=== PATIENT | female | born 1995 | race Caucasian/White ===

== ENCOUNTER 2023-06-05 21:21 | Observation (INO) ==
[2023-06-05 22:21] LABS: Basophils # (auto) 0.05 K/uL (0-0.2); Basophils % (auto) 0.4 %; Eosinophils # (auto) 0.13 K/uL (0-0.50); Eosinophils % (auto) 1.1 %; Hematocrit (blood only) 34.7 % (37.0-47.0); Hemoglobin 11.4 g/dl (12.0-16.0); Immature Granulocytes # (auto) 0.04 K/uL (0.01-0.20); Immature Granulocytes % (auto) 0.3 %; Lymphocytes # (auto) 1.64 K/uL (1.2-3.4); Lymphocytes % (auto) 13.7 %; Mean Corpuscular Hemoglobin 26.4 pg (25.0-34.0); Mean Corpuscular Hgb Conc 32.9 g/dL (32.0-36.0); Mean Corpuscular Volume 80.3 fL (80.0-100.0); Mean Platelet Volume 9.6 fL (9.4-12.4); Monocytes # (auto) 0.69 K/uL (0.11-0.59); Monocytes % (auto) 5.8 %; Neutrophils # (auto) 9.45 K/uL (1.40-6.50); Neutrophils % (auto) 78.7 %; Platelet Count 322 K/uL (130-400); RDW Coefficient of Variation 13.8 % (11.5-14.5); RDW Standard Deviation 39.9 fL (36.4-46.3); Red Blood Count 4.32 M/uL (4.20-5.40)
[2023-06-05 22:41] LABS: BUN Creatinine Ratio 12.5 (10-20); Calcium 8.8 mg/dl (8.6-10.3); Creatinine Clr Calc Pharmacy 116.8 ml/min; Est GFR (African American) 117.9 ml/min; Est GFR (Non-African American) 101.8 ml/min; Potassium 3.5 mmol/L (3.5-5.1)
[2023-06-05] MEDS ORDERED: AMPICILLIN/SULBACTAM SOD 3,000 MG in 0.9 % SODIUM CHLORIDE 100 ML IV STA (23:13)
[2023-06-05] MEDS ORDERED: KETOROLAC TROMETHAMINE 15 MG/ML VIAL IV ONE (23:14)
[2023-06-05] MEDS ORDERED: ACETAMINOPHEN 1,000 MG/100 ML VIAL IV STA (23:14)
[2023-06-05] MEDS ORDERED: SODIUM CHLORIDE 0.9% 1000ML 1,000 ML IV SCH (23:15)
--- NOTE | 2023-06-05 23:20 | Emergency Department Note ---
Impression & Plan Cat bite, Cellulitis, Lymphangitis ED Provider Note ED Provider Note NAME: BALDEV BARTH AGE:28 SEX: Female : 1995 ARRIVES VIA: Private vehicle INFORMANT: Patient ED PROVIDER(s): Gifty Diehl DO CHIEF COMPLAINT: Increased pain and redness at site of recent cat bite HPI: This is a 28-year-old female presents emerged department due to concern for worsening infection following a recent cat bite. Patient states her cat which is up-to-date on vaccinations bit her on Sunday. She states she went to [facility] on Sunday and was started on Augmentin. Patient states she has been taking this however pain, swelling, and redness continue to worsen. She denies any ADRs related to taking the Augmentin. Patient states she has pain at her wrist and hand and feels it is more swollen. She noticed today redness seem to be extending further up her arm. She denies fevers, chills, nausea, vomiting. PAST MEDICAL HISTORY:See Below PAST SURGICAL HISTORY:See Below FAMILY HISTORY:See Below SOCIAL HISTORY:See Below HOME MEDICATIONS:See Below ALLERGIES:See Below VITALS:See Below PHYSICAL EXAMINATION: GENERAL: alert, well appearing, well nourished, no distress, non-toxic EYE EXAM: normal conjunctiva, PERRL and EOM's grossly intact NECK: supple, no nuchal rigidity, no adenopathy, non-tender LUNGS: Clear to auscultation. Normal chest wall mechanics, no w/r/r HEART: no murmurs, S1 normal and S2 normal ABDOMEN: abdomen soft, non-tender, normo-active bowel sounds, no masses, no re bound or guarding. BACK: Back is symmetrical on inspection and there is no deformity, no midline te nderness, no CVA tenderness. SKIN: no rashes, petechiae, orbruising UPPER EXTREMITIES: upper extremities are grossly normal. FROM LUE, nml pulses b/l. Superficial lacerations from cat scratch noted to the dorsal aspect of the right wrist, small puncture wound just proximal to the base of the first MCP at the thumb, patient's right hand does appear edematous primarily on the dorsal aspect, there is erythema extending proximally from the scratches dorsally as well as on the volar aspect; patient with decreased range of motion at the right hand and wrist secondary to pain. Normal cap refill. Involved area outlined with a sterile marking pen. LOWER EXTREMITIES: No pitting edema. FROM, nml pulses b/l. NEURO EXAM: Normal sensorium, cranial nerves II-XII grossly intact, normal speech, no facial droop,nogross weakness of arms, no gross weakness of legs. Gross sensation intact. No ataxia. Vital Signs: reviewed and remarkable Differential Diagnosis: Cellulitis, ascending lymphangitis, abscess, medication ADR, occult trauma, deep space infection, as well as others were considered MEDICAL DECISION MAKING: This is a 28-year-old female who presents emergency room due to concern for worsening infection and pain in the area of her recent cat bite. Patient has been on Augmentin as an outpatient for 3 days and continues to have worsening symptoms. Labs are drawn and sent, IV established, involved area examined at bedside and outlined with a sterile marking pen and IV antibiotics added. Case discussed with the hospitalist for additional evaluation and management due to failed outpatient treatment. Patient with no systemic symptoms to suggest evolving sepsis. Mild leukocytosis noted, however procalcitonin negative. Consultation(s): 2340: Discussed with Dr. Contreras for admission. ER Treatment Provided: See below Diagnostics Interpreted By Me: -ECG: [] -Cardiac Monitoring: An order was placed for continuous cardiac monitoring. The monitor shows a rate of 87 with [] rhythm. -Laboratory studies: As stated above and show below. -Imaging studies: [] Triage Nursing Note Reviewed Prior/Outside Records Reviewed Procedures: [] Critical Care: [] Past Med/Surg History Family History (Updated 06/06/23 @ 01:30 by Nishant Contreras MD) Mother Depression Sleep apnea Fibromyalgia Father Depression Social History Smoking Status: Former smoker Hx Alcohol Use: Yes Alcohol type: wine Hx Substance Use: No Preferred Language: Hebrew Communication Ability: Effective Photographic Engineer Required: No Beliefs That Will Affect Care: None Current Living Situation: Parent Current Living Situation Comment: Lives at home with mom and dad Feels Safe at Home: Yes Safety Concerns: Feels Safe At This Time Assistive Devices: None Allergies Allergies Allergy/AdvReac Type Severity Reaction Status Date / Time azithromycin [From Zithromax] Allergy Mild Rash Verified 06/05/23 23:51 cefuroxime [From Ceftin] Allergy Rash Verified 06/05/23 23:52 Home Meds Home Medications Medication Instructions Recorded Confirmed rizatriptan 10 mg tablet 10 mg PO DAILY PRN Migraine 06/06/23 06/06/23 Headache Results & Data (ED) Vital Signs Vital Signs - 24 hr 06/05/23 21:27 Temperature 36.6 C Temperature Source Temporal Artery Scan Pulse Rate 123 H Respiratory Rate 18 Respiratory Effort / Characteristics Non-Labored Respiratory Depth Normal Respiratory Pattern Regular Blood Pressure 108/82 Blood Pressure Mean 90 Pulse Oximetry 96 Oxygen Delivery Method Room Air Sepsis Recent Fever Within 48 Hours No Sepsis New/Unexplained Change in Mental Status No Sepsis Action Taken by Nursing No Action Required Laboratory Data 06/05/23 21:57 06/05/23 21:57 Lab Results 06/05/23 06/05/23 06/05/23 Range/Units 21:57 21:57 21:57 WBC 12.00 H (4.8-10.8) K/ul RBC 4.32 (4.20-5.40) M/uL Hgb 11.4 L (12.0-16.0) g/dl Hct 34.7 L (37.0-47.0) % MCV 80.3 (80.0-100.0) fL MCH 26.4 (25.0-34.0) pg MCHC 32.9 (32.0-36.0) g/dL RDW Std Deviation 39.9 (36.4-46.3) fL RDW Coeff of [place] 13.8 (11.5-14.5) % Plt Count 322 (130-400) K/uL MPV 9.6 (9.4-12.4) fL Immature Gran % (Auto) 0.3 % Neut % (Auto) 78.7 % Lymph % (Auto) 13.7 % [place] % (Auto) 5.8 % Eos % (Auto) 1.1 % Baso % (Auto) 0.4 % Neut # (Auto) 9.45 H (1.40-6.50) K/uL Lymph # (Auto) 1.64 (1.2-3.4) K/uL [place] # (Auto) 0.69 H (0.11-0.59) K/uL Eos # (Auto) 0.13 (0-0.50) K/uL Baso # (Auto) 0.05 (0-0.2) K/uL Immature Gran # (Auto) 0.04 (0.01-0.20) K/uL Sodium 137 (136-145) mmol/L Potassium 3.5 (3.5-5.1) mmol/L Chloride 104 (98-107) mmol/L Carbon Dioxide 25 (21-32) mmol/L Anion Gap 8 (3-11) BUN 10 (6-23) mg/dl Creatinine 0.80 (0.6-1.2) mg/dl Est Cr Clr Drug Dosing 116.8 ml/min Est GFR ( Amer) 117.9 ml/min Est GFR (Non-Af Amer) 101.8 ml/min BUN/Creatinine Ratio 12.5 (10-20) Glucose 86 (70-99(Fasting)) mg/dl Calcium 8.8 (8.6-10.3) mg/dl Total Bilirubin 0.3 (0.2-1.0) mg/dl Direct Bilirubin 0.1 (0-0.2) mg/dl AST 26 (13-39) U/L ALT 27 (7-52) U/L Alkaline Phosphatase 79 (34-104) U/L Total Protein 7.9 (6.0-8.3) gm/dl Albumin 4.4 (3.4-5.0) gm/dl Procalcitonin (0-0.5) ng/ml SARS-CoV-2, RNA, NAAT (NEGATIVE) 06/05/23 06/05/23 Range/Units 21:57 23:23 WBC (4.8-10.8) K/ul RBC (4.20-5.40) M/uL Hgb (12.0-16.0) g/dl Hct (37.0-47.0) % MCV (80.0-100.0) fL MCH (25.0-34.0) pg MCHC (32.0-36.0) g/dL RDW Std Deviation (36.4-46.3) fL RDW Coeff of [place] (11.5-14.5) % Plt Count (130-400) K/uL MPV (9.4-12.4) fL Immature Gran % (Auto) % Neut % (Auto) % Lymph % (Auto) % [place] % (Auto) % Eos % (Auto) % Baso % (Auto) % Neut # (Auto) (1.40-6.50) K/uL Lymph # (Auto) (1.2-3.4) K/uL [place] # (Auto) (0.11-0.59) K/uL Eos # (Auto) (0-0.50) K/uL Baso # (Auto) (0-0.2) K/uL Immature Gran # (Auto) (0.01-0.20) K/uL Sodium (136-145) mmol/L Potassium (3.5-5.1) mmol/L Chloride (98-107) mmol/L Carbon Dioxide (21-32) mmol/L Anion Gap (3-11) BUN (6-23) mg/dl Creatinine (0.6-1.2) mg/dl Est Cr Clr Drug Dosing ml/min Est GFR ( Amer) ml/min Est GFR (Non-Af Amer) ml/min BUN/Creatinine Ratio (10-20) Glucose (70-99(Fasting)) mg/dl Calcium (8.6-10.3) mg/dl Total Bilirubin (0.2-1.0) mg/dl Direct Bilirubin (0-0.2) mg/dl AST (13-39) U/L ALT (7-52) U/L Alkaline Phosphatase (34-104) U/L Total Protein (6.0-8.3) gm/dl Albumin (3.4-5.0) gm/dl Procalcitonin < 0.05 (0-0.5) ng/ml SARS-CoV-2, RNA, NAAT NEGATIVE (NEGATIVE) Administered Medications Acetaminophen (Acetaminophen 325 Mg Tab) 650 mg PO Q4H PRN PRN Reason: pain/fever Stop: 07/06/23 02:47 Last Admin: 06/06/23 03:13 Dose: 650 mg Documented By: DELILAH Ampicillin Sodium/Sulbactam Sodium 3,000 mg/ Sodium Chloride 108 mls @ 200 mls/hr IV Q6H [facility], [facility]; Protocol Stop: 06/13/23 05:59 Last Infusion: 06/06/23 23:47 Dose: 0 mls/hr Documented By: Admin: 06/06/23 23:14 Dose: 200 mls/hr Documented By: Infusion: 06/06/23 18:12 Dose: 0 mls/hr Documented By: Admin: 06/06/23 17:06 Dose: 200 mls/hr Documented By: Infusion: 06/06/23 11:58 Dose: 0 mls/hr Documented By: Admin: 06/06/23 11:28 Dose: 216 mls/hr Documented By: Infusion: 06/06/23 05:44 Dose: 0 mls/hr Documented By: Admin: 06/06/23 05:11 Dose: 200 mls/hr Documented By: DELILAH Ketorolac Tromethamine (Ketorolac Tromethamine 15 Mg/Ml Vial) 15 mg IV Q6H PRN PRN Reason: Severe Pain (Scale 7, 8, 9,10) Stop: 06/11/23 02:47 Last Admin: 06/06/23 11:28 Dose: 15 mg Documented By: MATT Rizatriptan Benzoate (Rizatriptan Benzoate 10 Mg Tab) 10 mg PO DAILY PRN PRN Reason: Migraine Headache Stop: 07/06/23 16:25 Last Admin: 06/06/23 16:54 Dose: 10 mg Documented By: GUSTAVO Discontinued Medications Sodium Chloride (Nss 1000ml) 1,000 mls @ 200 mls/hr IV .Q5H CECE Stop: 07/05/23 23:14 Last Infusion: 06/06/23 03:21 Dose: 0 mls/hr Documented By: Admin: 06/05/23 23:24 Dose: 200 mls/hr Documented By: CC Ampicillin Sodium/Sulbactam Sodium 3,000 mg/ Sodium Chloride 108 mls @ 200 mls/hr IV NOW STA; Protocol Stop: 06/05/23 23:45 Last Infusion: 06/06/23 00:47 Dose: 0 mls/hr Documented By: Admin: 06/06/23 00:00 Dose: 200 mls/hr Documented By: CC Acetaminophen (Ofirmev) 1,000 mg in 100 mls @ 400 mls/hr IV NOW STA Stop: 06/05/23 23:28 Last Infusion: 06/05/23 23:53 Dose: 0 mls/hr Documented By: Admin: 06/05/23 23:25 Dose: 400 mls/hr Documented By: CC Sodium Chloride (Nss 1000ml) 1,000 mls @ 100 mls/hr IV .Q10H CECE Stop: 06/06/23 12:47 Last Infusion: 06/06/23 13:57 Dose: 0 mls/hr Documented By: Admin: 06/06/23 03:15 Dose: 100 mls/hr Documented By: DELILAH Ketorolac Tromethamine (Ketorolac Tromethamine 15 Mg/Ml Vial) 10 mg IV NOW ONE Stop: 06/05/23 23:15 Last Admin: 06/05/23 23:25 Dose: 10 mg Documented By: CC Discharge Plan Visit Data Chief Complaint: Animal Bite Stated Complaint: CAT BITE,SWELLING R HAND ED Provider: Gifty Diehl Discharge Problem: Cat bite, Cellulitis, Lymphangitis Patient Disposition: Admitted As Inpatient Discharge Instructions Interventions: ED Discharge Assessment Last Done: 06/06/23 02:22
[2023-06-06 01:25] LABS: Albumin Level 4.4 gm/dl (3.4-5.0); Bilirubin Direct 0.1 mg/dl (0-0.2); Bilirubin,Total 0.3 mg/dl (0.2-1.0)
[2023-06-06 01:31] LABS: Total Protein 7.9 gm/dl (6.0-8.3)
--- NOTE | 2023-06-06 01:33 | History & Physical Report ---
Date of Service June 06, 2023 Assessment & Plan (1) Cat bite: Plan: 28-year-old female presents with cat bite and right hand infection. Cat bite Right hand infection and cellulitis Failed outpatient treatment with Augmentin ER started on IV Unasyn which will be continued We will monitor the response. Pain control. If worsening will consult orthopedics. History of migraine We will monitor DVT prophylaxis SCDs Disposition Medical floor History of Present Illness Chief Complaint: Cat bite, infection of the right hand Primary Care Provider: Joaquin Esparza PA-C This is a 28-year-old female with past medical significant for migraine, connective tissue disorder, history of depression, currently not on medications presents with infection from cat bite of the right hand. Patient states her cat bit her last Sunday and she went to urgent care on Sunday and was prescribed Augmentin. But the p.o. antibiotic was not helping. She is having edema of the right hand and also some erythematous changes and significant pain. Denies any fevers. Currently resting comfortably and hemodynamically stable. Denies any headache or dizziness. No blurred visions. No earache or runny nose or sore throat or cough. No chest pain or shortness of breath. No nausea or abdominal pain. Normal bowel and bladder movements. Past medical history as mentioned above. Past surgical history nothing on file. Allergies Allergy/AdvReac Type Severity Reaction Status Date / Time azithromycin [From Zithromax] Allergy Mild Rash Verified 06/05/23 23:51 cefuroxime [From Ceftin] Allergy Rash Verified 06/05/23 23:52 Past Med/Surg History Family History (Updated 06/06/23 @ 01:30 by Nishant Contreras MD) Mother Depression Sleep apnea Fibromyalgia Father Depression Social History Smoking Status: Never smoker Preferred Language: Malagasy Feels Safe at Home: Yes Review of Systems Review of Systems: All systems reviewed & are unremarkable except as noted in Subjective Physical Exam Physical Exam: NEEDS EDITING General- adult Head- atraumatic Eyes- PERRL, ENT- oropharynx clear Neck- supple, no JVD, Lungs- clear to auscultation and percussion Heart- regular rhythm; no murmur, no gallop, no rub appreciated Abdomen- normal bowel sounds, soft, nontender, no masses or hepatosplenomegaly Extremities- no pretibial edema, erytematous changes and mild edema and tender to palpation of right hand dorsal aspect and mild erythematous spread into fore arm. Neuro- alert, oriented x 3; Non focal Skin- warm & dry Results & Data Results & Data Vital Signs (Past 12 Hours) Vital Signs Temp Pulse Pulse Resp BP BP Pulse Ox 06/05/23 23:37 97 H 18 124/70 98 06/05/23 23:33 97 H 06/05/23 21:27 36.6 C 123 H 18 108/82 96 O2 Del Method 06/05/23 23:37 Room Air 06/05/23 23:33 06/05/23 21:27 Room Air Diagnostic Findings Laboratory Results WBC 12.00 K/ul (4.8-10.8) H 06/05/23 21:57 RBC 4.32 M/uL (4.20-5.40) 06/05/23 21:57 Hgb 11.4 g/dl (12.0-16.0) L 06/05/23 21:57 Hct 34.7 % (37.0-47.0) L 06/05/23 21:57 MCV 80.3 fL (80.0-100.0) 06/05/23 21:57 MCH 26.4 pg (25.0-34.0) 06/05/23 21:57 MCHC 32.9 g/dL (32.0-36.0) 06/05/23 21:57 RDW Std Deviation 39.9 fL (36.4-46.3) 06/05/23 21:57 RDW Coeff of Marina 13.8 % (11.5-14.5) 06/05/23 21:57 Plt Count 322 K/uL (130-400) 06/05/23 21:57 MPV 9.6 fL (9.4-12.4) 06/05/23 21:57 Immature Gran % (Auto) 0.3 % 06/05/23 21:57 Neut % (Auto) 78.7 % 06/05/23 21:57 Lymph % (Auto) 13.7 % 06/05/23 21:57 [place] % (Auto) 5.8 % 06/05/23 21:57 Eos % (Auto) 1.1 % 06/05/23 21:57 Baso % (Auto) 0.4 % 06/05/23 21:57 Neut # (Auto) 9.45 K/uL (1.40-6.50) H 06/05/23 21:57 Lymph # (Auto) 1.64 K/uL (1.2-3.4) 06/05/23 21:57 [place] # (Auto) 0.69 K/uL (0.11-0.59) H 06/05/23 21:57 Eos # (Auto) 0.13 K/uL (0-0.50) 06/05/23 21:57 Baso # (Auto) 0.05 K/uL (0-0.2) 06/05/23 21:57 Immature Gran # (Auto) 0.04 K/uL (0.01-0.20) 06/05/23 21:57 Sodium 137 mmol/L (136-145) 06/05/23 21:57 Potassium 3.5 mmol/L (3.5-5.1) 06/05/23 21:57 Chloride 104 mmol/L (98-107) 06/05/23 21:57 Carbon Dioxide 25 mmol/L (21-32) 06/05/23 21:57 Anion Gap 8 (3-11) 06/05/23 21:57 BUN 10 mg/dl (6-23) 06/05/23 21:57 Creatinine 0.80 mg/dl (0.6-1.2) 06/05/23 21:57 Est Cr Clr Drug Dosing 116.8 ml/min 06/05/23 21:57 Est GFR ( Amer) 117.9 ml/min 06/05/23 21:57 Est GFR (Non-Af Amer) 101.8 ml/min 06/05/23 21:57 BUN/Creatinine Ratio 12.5 (10-20) 06/05/23 21:57 Glucose 86 mg/dl (70-99(Fasting)) 06/05/23 21:57 Calcium 8.8 mg/dl (8.6-10.3) 06/05/23 21:57 Total Bilirubin 0.3 mg/dl (0.2-1.0) 06/05/23 21:57 Direct Bilirubin 0.1 mg/dl (0-0.2) 06/05/23 21:57 AST 26 U/L (13-39) 06/05/23 21:57 ALT 27 U/L (7-52) 06/05/23 21:57 Alkaline Phosphatase 79 U/L (34-104) 06/05/23 21:57 Total Protein 7.9 gm/dl (6.0-8.3) 06/05/23 21:57 Albumin 4.4 gm/dl (3.4-5.0) 06/05/23 21:57 Procalcitonin < 0.05 ng/ml (0-0.5) 06/05/23 21:57 SARS-CoV-2, RNA, NAAT NEGATIVE (NEGATIVE) 06/05/23 23:23 Code Status & VTE Plan VTE Prophylaxis Plan VTE Prophylaxis will be ordered: Yes
[2023-06-06] MEDS ORDERED: POLYETHYLENE (MIRALAX) 17 GM PACK PO PRN (02:48)
[2023-06-06] MEDS ORDERED: SODIUM CHLORIDE 0.9% 1000ML 1,000 ML IV SCH (02:48)
[2023-06-06] MEDS ORDERED: ACETAMINOPHEN 325 MG TAB PO PRN (02:48)
[2023-06-06] MEDS: AMPICILLIN/SULBACTAM SOD 3,000 MG in 0.9 % SODIUM CHLORIDE 100 ML IV SCH ×4 (05:11→23:14)
[2023-06-06] MEDS: KETOROLAC TROMETHAMINE 15 MG/ML VIAL IV PRN (11:28)
[2023-06-06] MEDS ORDERED: RIZATRIPTAN BENZOATE 10 MG TAB PO PRN (16:26)
--- NOTE | 2023-06-06 18:02 | Communication Note ---
Date of Service: June 06, 2023 28-year-old female with PMH of migraine, CTD, depression presented to the ED 7/ ABDOMEN: Soft, non-tender, no organs or masses felt. Bowel sounds normo-a ctive. No bruits. With worsening cat bite infection on the right hand despite outpatient Augmentin therapy. She was a started on Unasyn, today day erythema has resolved, swelling and pain has slightly gotten better. Patient is hemodynamically stable, afebrile. On exam, patient on room air, NAD, heart/lung/abdomen examination fairly WNL, right hand swelling/tenderness, erythema has resolved. Continue other home medication, for further details on the patient, refer to today's H&P note.
[2023-06-07] MEDS: KETOROLAC TROMETHAMINE 15 MG/ML VIAL IV PRN (03:19)
[2023-06-07] MEDS: AMPICILLIN/SULBACTAM SOD 3,000 MG in 0.9 % SODIUM CHLORIDE 100 ML IV SCH ×4 (06:06→23:40)
[2023-06-07 06:16] LABS: Hematocrit (blood only) 29.2 % (37.0-47.0); Hemoglobin 9.7 g/dl (12.0-16.0); Mean Corpuscular Hemoglobin 26.4 pg (25.0-34.0); Mean Corpuscular Hgb Conc 33.2 g/dL (32.0-36.0); Mean Corpuscular Volume 79.3 fL (80.0-100.0); Mean Platelet Volume 9.9 fL (9.4-12.4); Platelet Count 251 K/uL (130-400); RDW Standard Deviation 40.4 fL (36.4-46.3); Red Blood Count 3.68 M/uL (4.20-5.40); White Blood Count 7.05 K/ul (4.8-10.8)
[2023-06-07 06:22] LABS: BUN Creatinine Ratio 18.2 (10-20); Calcium 7.8 mg/dl (8.6-10.3); Creatinine Clr Calc Pharmacy 141.1 ml/min; Est GFR (African American) 141.3 ml/min; Est GFR (Non-African American) 121.9 ml/min; Phosphorus 3.1 mg/dl (2.5-4.9); Potassium 3.7 mmol/L (3.5-5.1)
--- NOTE | 2023-06-07 15:20 | XRay Report ---
XR wrist RT min 3V routine CLINICAL HISTORY: Right wrist pain. COMPARISON STUDY: None. FINDINGS: There is soft tissue swelling within the dorsum of the hand/wrist. No fracture or dislocati on within the right wrist. The scaphoid appears intact. No radiopaque foreign bodies. IMPRESSION: 1. Soft tissue swelling within the dorsum of the hand/wrist. 2. No acute fracture or dislocation within the right wrist. ACT 112: Negative or not required by law. Electronically signed by: Serge Gonzalez M.D. 06/07/2023 3:18 PM
--- NOTE | 2023-06-07 15:36 | Orthopedic Consultation ---
Date of Consultation June 07, 2023 Assessment & Plan (1) Cat bite: Findings discussed with patient and family. I think that she has cellulitis secondary to a cat bite. She is on the appropriate antibiotics. Clinically things look like they are improving. There is minimal swelling and redness. She has persistent pain. Based upon the physical findings as well as the radiographs the suspicion for structural damage such as fracture osteomyelitis tendon ligament nerve blood vessel injury is are absent. I do not see any significant abscess which would require draining. Although joint infection is a possibility the suspicion at this time based upon the evidence is low. We will place her into a bulky hand dressing and continue to elevate. I spoke with Dr. Knutson via [place] text and recommend continued IV antibiotics. We will reassess tomorrow. I will increase the Toradol to 30 mg IV every 6 and I discussed with Clare that this would be a good medicine for pain and inflammation. I do not see a need for aspiration or surgical intervention at the present time. Present on Admission?: Yes (2) Cellulitis: History of Present Illness Attending Physician: Benny Knutson MD History of Present Illness Clare is 28. [id number]. Last Sunday she was bit by her On the radial aspect of her right wrist. She experienced immediate pain and then went on to experience redness and swelling. She went to urgent care and was given Augmentin. Her symptoms worsened and she came to the hospital Sunday evening and was admitted by the medicine hospitalist service and placed on IV Unasyn. Since then she reports that her pain has not significantly improved. She does note that there is less redness and less swelling. She notes pain on the radial aspect of the wrist that also goes across the wrist towards the ulnar side. She does not have a prior history of significant wrist injuries or problems. She does have a potential connective tissue disorder and has a family member with Refugio-Danlos syndrome diagnosis. She reports joint hypermobility. No measured fevers at home. She is concerned for tissue damage and tendon damage. Allergies Allergy/AdvReac Type Severity Reaction Status Date / Time azithromycin [From Zithromax] Allergy Mild Rash Verified 06/05/23 23:51 cefuroxime [From Ceftin] Allergy Rash Verified 06/05/23 23:52 Home Medications Medication Instructions Recorded Confirmed Type rizatriptan 10 mg tablet 10 mg PO DAILY PRN Migraine 06/06/23 06/06/23 History Headache Patient History Family History (Updated 06/06/23 @ 01:30 by Nishant Contreras MD) Mother Depression Sleep apnea Fibromyalgia Father Depression Social History Smoking Status: Former smoker Hx Alcohol Use: Yes Alcohol type: wine Hx Substance Use: No Preferred Language: Welsh Communication Ability: Effective Enrollment Consultant Required: No Beliefs That Will Affect Care: None Current Living Situation: Parent Current Living Situation Comment: Lives at home with mom and dad Feels Safe at Home: Yes Safety Concerns: Feels Safe At This Time Assistive Devices: None Review of Systems Review of Systems: She is not diabetic and does not have cancer or other sources of immunocompromise. Physical Exam Physical Exam: She uses the right hand to scratch her face and wipe tears from her eyes during the exam. Her compartments of the arm and hand are soft. She does have mild swelling of the hand and wrist area and there is a focal area of slight enlargement in the area of the puncture wound on the anatomic snuffbox area. Capillary refill is less than 2 seconds. Radial pulse is 1+. Median radial and ulnar motor and sensory functions are intact. Erythema is largely absent and if anything slight pinkish discoloration over the volar aspect of the distal and radial side of the wrist. Skin wrinkles are present. The skin is not tight and shiny. There is no drainage and she reports no history of having any drainage. She has intact thumb abduction IP joint extension and flexion. There is also markings on the ulnar side of the wrist where there was a lesser bite. The wrist is not fusiform the swollen. She can touch her thumb to each individual fingertip. She can make a full fist and fully extend her fingers. She can extend her wrist about 20 to 30 degrees and flex it 30 to 40 degrees with some discomfort. This is localized over the radial side of the wrist and across the dorsum of the wrist. There is tenderness over the puncture site and the surrounding area including the radial styloid area and a little bit across the dorsum of the wrist area. There is nothing out onto the thumb or metacarpals or ulnar side of the wrist and nothing on the ulnar side of the wrist. There was minimal if any fluctuance over the puncture wound anatomic snuffbox and wrist joint area. There is full forearm rotation Results & Data Vital Signs (Past 12 Hours) Vital Signs Temp Pulse Resp BP Pulse Ox O2 Del Method 06/07/23 07:48 36.9 C 79 16 95/67 L 98 Room Air Laboratory Results She is afebrile. She did have an elevated white blood cell count when she came in but this has returned to normal. Radiographs of the wrist are reviewed showing some soft tissue swelling but there is no foreign material and no air. Report is pending
[2023-06-07] MEDS ORDERED: KETOROLAC TROMETHAMINE 15 MG/ML VIAL IV SCH (15:45)
--- NOTE | 2023-06-07 18:19 | Hospitalist Progress Note ---
Date of Service June 07, 2023 Assessment & Plan (1) Cellulitis: Plan 28-year-old female with PMH of migraine, CTD, depression presented to the ED With worsening cat bite infection on the right hand despite outpatient Augmentin therapy. She is being managed for the following: Cat bite Right hand cellulitis associated with cat bite Failure of outpatient oral antibiotic therapy She was started on Unasyn 06/06 Erythema and swelling is improving, persistent pain X-ray right wrist obtained, no acute findings. Orthopedic consulted, appreciate recommendation. Continue IV antibiotic today, possible discharge tomorrow. Other chronic medical conditions: Migraine--- continue with home meds as able. Admission and Anticipated Discharge Date Admission Date: June 06, 2023 Subjective Patient seen and examined at bedside as a follow-up of right hand cellulitis secondary to cat bite. Patient was sitting up in bed, on room air, NAD, reports persistent right wrist pain despite improving swelling and redness of the right hand and wrist. Obtained x-ray right wrist with no acute findings. Discussed with orthopedics/orthopedic consult, plan to reassess tomorrow, plan to continue IV antibiotic, increased pain medication dose. Patient reports eating okay and moving bowels okay, has no fevers and otherwise offers no other complaints. Physical Exam Physical Exam: GENERAL: Alert and oriented x3. NAD, on RA. HEENT: No pallor, no icterus. Pupils equal, round and reactive to light. Oral mucosa moist. NECK: No JVD, no neck masses. HEART: S1 and S2 heard. Regular rate and rhythm. No murmur, no gallop. RESPIRATORY SYSTEM: Normal AP diameter. No accessory muscle use. No wheezing, no crackles. ABDOMEN: Soft, bowel sounds present, nontender, no distention. CENTRAL NERVOUS SYSTEM: No facial droop. Speech is clear. Obeys simple commands. Moves extremities. EXTREMITIES: No edema, no erythema seen. Right hand/wrist minimal swelling, pain with maneuvering. Results & Data Results & Data Vital Signs (Past 12 Hours) Vital Signs Temp Pulse Resp BP Pulse Ox O2 Del Method 06/07/23 16:33 36.9 C 88 16 122/84 97 Room Air 06/07/23 07:48 36.9 C 79 16 95/67 L 98 Room Air
[2023-06-07] MEDS: KETOROLAC 30 MG/ML VIAL IV SCH (22:11)
[2023-06-08] MEDS: KETOROLAC 30 MG/ML VIAL IV SCH ×2 (04:45→10:19)
[2023-06-08] MEDS: AMPICILLIN/SULBACTAM SOD 3,000 MG in 0.9 % SODIUM CHLORIDE 100 ML IV SCH ×2 (05:24→11:18)
--- NOTE | 2023-06-08 07:43 | Orthopedic Progress Note ---
Date of Service June 08, 2023 Assessment & Plan (1) Cat bite: Plan: She is improved. I think things could go either way in terms of continued admission or discharge. It really depends on how she feels. Afebrile. Improved. We talked about options pros and cons. She wishes to be discharged home which I think is reasonable. Discharged on Augmentin or similar. I rewrapped her hand she is to continue to elevate. If there is worsening pain swelling fevers or any other problems or questions please go to the emergency room. She can follow-up with me Sunday or Sunday in my office at [facility] orthopedics. Thank you. Take anti-inflammatory like Advil or Aleve. (2) Cellulitis: Admission and Anticipated Discharge Date Admission Date: June 06, 2023 Subjective Feels improved. 2 out of 10 pain at rest which is an improvement compared to several days ago where she was 4 or 5 out of pain at rest. Physical Exam Physical Exam: The wrap is removed. Median radial and ulnar motor and sensory functions are intact. She still has some swelling of her thumb but thus swelling of the fingers is absent. She can oppose her thumb to each finger tip. Thumb IP joint flexion and extension intact. She has full finger flexion and extension. Erythema is absent. There is mild swelling of the dorsum of the hand minimal in the wrist area. The puncture wound looks benign. There is no surrounding erythema I do not detect any significant fluctuance. The puncture wound is less tender today than it was yesterday and the tenderness over the radial styloid area and base of the thumb area is improved or resolved. She still has some tenderness to palpation over the dorsal aspect of the wrist but I do not detect any significant swelling of the wrist dorsally or volarly. She has full forearm rotation and can flex and extend the wrist about 30 to 40 degrees in each direction and her pain increases with that maneuver. Passively I can place her through this range of motion with less and minimal pain. Distraction and compression of the joint does not elicit any discomfort. There is no red streaking Results & Data Vital Signs (Past 12 Hours) Vital Signs Temp Pulse Resp BP Pulse Ox O2 Del Method 06/07/23 22:34 36.8 C 80 18 126/83 97 Room Air 06/07/23 20:45 Room Air
[2023-06-08 08:40] LABS: Hematocrit (blood only) 29.7 % (37.0-47.0); Hemoglobin 9.9 g/dl (12.0-16.0); Mean Corpuscular Hemoglobin 26.5 pg (25.0-34.0); Mean Corpuscular Hgb Conc 33.3 g/dL (32.0-36.0); Mean Corpuscular Volume 79.4 fL (80.0-100.0); Mean Platelet Volume 9.8 fL (9.4-12.4); Platelet Count 271 K/uL (130-400); RDW Coefficient of Variation 13.8 % (11.5-14.5); RDW Standard Deviation 39.4 fL (36.4-46.3); Red Blood Count 3.74 M/uL (4.20-5.40); White Blood Count 6.49 K/ul (4.8-10.8)
[2023-06-08 08:53] LABS: BUN Creatinine Ratio 22.7 (10-20); Creatinine Clr Calc Pharmacy 141.1 ml/min; Est GFR (African American) 141.3 ml/min; Est GFR (Non-African American) 121.9 ml/min; Potassium 3.9 mmol/L (3.5-5.1)
--- NOTE | 2023-06-08 13:13 | Discharge Summary ---
Date of Service June 08, 2023 Admission HPI Per Admitting Provider This is a 28-year-old female with past medical significant for migraine, connective tissue disorder, history of depression, currently not on medications presents with infection from cat bite of the right hand. Patient states her cat bit her last Sunday and she went to urgent care on Sunday and was prescribed Augmentin. But the p.o. antibiotic was not helping. She is having edema of the right hand and also some erythematous changes and significant pain. Denies any fevers. Currently resting comfortably and hemodynamically stable. Denies any headache or dizziness. No blurred visions. No earache or runny nose or sore throat or cough. No chest pain or shortness of breath. No nausea or abdominal pain. Normal bowel and bladder movements. Past medical history as mentioned above. Past surgical history nothing on file. Admission Exam Per Admitting Provider General- adult Head- atraumatic Eyes- PERRL, ENT- oropharynx clear Neck- supple, no JVD, Lungs- clear to auscultation and percussion Heart- regular rhythm; no murmur, no gallop, no rub appreciated Abdomen- normal bowel sounds, soft, nontender, no masses or hepatosplenomegaly Extremities- no pretibial edema, erytematous changes and mild edema and tender to palpation of right hand dorsal aspect and mild erythematous spread into fore arm. Neuro- alert, oriented x 3; Non focal Skin- warm & dry Principal Diagnosis Cat bite Right hand cellulitis Discharge Exam GENERAL: Alert and oriented x3. NAD, on RA. HEENT: No pallor, no icterus. Pupils equal, round and reactive to light. Oral mucosa moist. NECK: No JVD, no neck masses. HEART: S1 and S2 heard. Regular rate and rhythm. No murmur, no gallop. RESPIRATORY SYSTEM: Normal AP diameter. No accessory muscle use. No wheezing, no crackles. ABDOMEN: Soft, bowel sounds present, nontender, no distention. CENTRAL NERVOUS SYSTEM: No facial droop. Speech is clear. Obeys simple commands. Moves extremities. EXTREMITIES: No edema, no erythema seen. Right hand/wrist w/ bulky dressing, pain improving Discharge Data Allergies Allergy/AdvReac Type Severity Reaction Status Date / Time azithromycin [From Zithromax] Allergy Mild Rash Verified 06/05/23 23:51 cefuroxime [From Ceftin] Allergy Rash Verified 06/05/23 23:52 Consultations 06/05/23 23:40 ED Decision to Admit Stat 06/07/23 14:19 Consult Orthopedic Surgery Routine Hospital Course (1) Cellulitis: Plan 28-year-old female with PMH of migraine, CTD, depression presented to the ED With worsening cat bite infection on the right hand despite outpatient Augmentin therapy. She was managed for the following: Cat bite Right hand cellulitis associated with cat bite Failure of outpatient oral antibiotic therapy She was started on Unasyn 06/06 Erythema and swelling is improving, persistent pain X-ray right wrist obtained, no acute findings. Orthopedic consulted, appreciate recommendation. On augmentin on dc. Pt to f/u ortho early next week, pt aware. Other chronic medical conditions: Migraine--- continue with home meds as able. Patient being discharged home with following instruction at the point of discharge: Follow-up with your primary care physician within a week time and likely you will need labs CBC/CMP/magnesium/phosphorus. As discussed at the bedside, you already have Augmentin at home for 7 days worth, you can continue to take the same medication and complete 7 days. Follow-up with orthopedics on Sunday or Sunday, you can call the office at [phone]. Minimize aggressive use of your right wrist joint. Have orthopedic evaluation prior to resuming your work. If with worsening pain or swelling or fever, contact emergency immediately. For mild pain, you can use [id number] Tylenol. For moderate to severe pain, you can use Toradol as prescribed. If ongoing pain, contact orthopedic office for further evaluation/management. Please make sure that you are able to get your medications today by calling your pharmacy before you leave the hospital so that your treatment continuity is not broken. Home Health Attestation I certify that this patient is under my care and that I, or a physicians environmental engineering assistant working with me, had a face to-face encounter that meets the home health [id number] encounter requirements with this patient. The encounter with the patient was in whole, or in part, for the following medical condition, which is the primary reason for home health care (list medical condition): I certify that, based on my findings, the following services are medically necessary home health services: My clinical findings support the need for the above services because: Further, I certify that my clinical findings support that this patient is homebound (i.e. absences from home require considerable and taxing effort and are for medical reasons or taoist services or infrequently or of short dura tion when for other reasons) because: Certification for Home Health Services: Based on the above findings, I certify that this patient is confined to the home and needs intermittent [facility] care, physical therapy and/or speech therapy or continues to need occupational therapy. The patient is under my care, and I have initiated the establishment of the plan of care. This patient will be followed by a physician who will periodically review the plan of care. Total Time Total Time Spent Total Time Spent (In Minutes): 45 Discharge Plan Discharge Items Patient Disposition: Home - Self-Care Reason For Visit: CAT BITE Discharge Diagnosis: Cat bite Right hand cellulitis Activity: As commented below Non-emergency contact: Primary Care Provider Call non-emergency contact if: you have any medication questions Follow-up/Referrals: Miguel Monson MD [Surgeon] - 06/12/23 10:00 am Joaquin Esparza PA-C [Primary Care Provider] - (Date & Time 06/13/2023 11:00 AM Provider Joaquin Esparza PA-C Department General Internal Medicine [facility] ) Diet: Regular Addtl Attending Provider Instructions: Follow-up with your primary care physician within a week time and likely you will need labs CBC/CMP/magnesium/phosphorus. As discussed at the bedside, you already have Augmentin at home for 7 days worth, you can continue to take the same medication and complete 7 days. Follow-up with orthopedics on Sunday or Sunday, you can call the office at [phone]. Minimize aggressive use of your right wrist joint. Have orthopedic evaluation prior to resuming your work. If with worsening pain or swelling or fever, contact emergency immediately. For mild pain, you can use [id number] Tylenol. For moderate to severe pain, you can use Toradol as prescribed. If ongoing pain, contact orthopedic office for further evaluation/management. Please make sure that you are able to get your medications today by calling your pharmacy before you leave the hospital so that your treatment continuity is not broken. Addtl [employer] Provider Instructions: Continue with antibiotics as prescribed Continue to elevate. If there is worsening pain, swelling, fevers, or any other problems or questions please go to the emergency room. Follow up in my office on SundayJune 12 at 10:00. Please call [phone] if any questions/need seen sooner Over the counter anti inflammatories as directed for pain Pending Studies at Discharge: Yes Stand-Alone Forms: My [facility], Smoking Cessation Medications and DC Order Prescriptions: New amoxicillin-pot clavulanate 875-125 mg tablet 1 tab PO BID 7 Days Qty: 14 0RF ketorolac 10 mg tablet 10 mg PO Q8H PRN (Reason: pain (scale score 7-10)) 3 Days Qty: 9 0RF Continued rizatriptan 10 mg tablet 10 mg PO DAILY PRN (Reason: Migraine Headache) Discharge Orders: Discharge Order (Routine); Ordered 06/08/23 Ordered By: Benny Knutson Admission Data Admit Date/Time: 06/06/23 01:24 Attending Provider: Benny Knutson Admit Provider: Nishant Contreras Primary Care Provider: Joaquin Esparza Other Providers: Nishant Contreras ; Miguel Monson
== END 2023-06-08 14:08 | disposition home or self-care (01) | DRG 603 ==
LOC: ED 21:21 → 3W 06-06 01:24 → INTOOBSV 06-06 01:24 → SUATTDRO 06-06 01:24 → 3W 06-06 02:22